=== PATIENT | male | born 1935 | race Caucasian/White ===

== ENCOUNTER → 2024-03-10 | Outpatient (CLI) | payer MEDICARE, BC, SELFPAY ==
[2024-03-10 15:39] LABS: Collection Type, Urine Clean Catch
[2024-03-10 16:44] LABS: Bacteria,Urine 2+; Bilirubin,Urine Negative (Negative); Blood,Urine 1+ (Negative); Color,Urine Yellow (Lt Yel-Yel); Glucose, Urine Negative (Negative); Hyaline Casts,Urine < 1 /hpf (0-1); Ketones,Urine Negative (Negative); Leukocyte Esterase,Urine Positive (Negative); Nitrite,Urine Negative (Negative); Protein,Urine Trace (Neg - Trace); RBC,Urine 33 /hpf (0-3); Specific Gravity,Urine 1.017 (1.001-1.035); Squamous Epithelial Cell,Urine 1 /hpf (0-5); Urobilinogen,Urine Negative mg/dL (0.0-1.0); WBC,Urine 1171 /hpf (0-5)
[2024-03-10 17:58] LABS: Clarity,Urine Hazy (Clear/Hazy)
== END | disposition home or self-care (01) ==
LOC: SLDO 15:28
PROVIDERS: PCP Registered Nurse; Referring Provider Registered Nurse; Visit Provider Registered Nurse
DX: N39.0 Urinary tract infection, site not specified (principal)
CPT/HCPCS: 81001; 87077; 87086; 87186

== ENCOUNTER → 2024-04-06 | Outpatient (CLI) | payer MEDICARE, BC, SELFPAY | END | disposition home or self-care (01) | LOC: SLDO 15:44 | PROVIDERS: PCP Family Medicine; Referring Provider Family Medicine; Visit Provider Family Medicine | DX: N39.0 Urinary tract infection, site not specified (principal) | CPT/HCPCS: 87086 ==

== ENCOUNTER → 2024-05-05 | Outpatient (CLI) | payer MEDICARE, BC, SELFPAY ==
--- NOTE | 2024-05-05 12:19 | XR_ITS ---
Examination: CT abdomen and pelvis without contrast. Coronal 3-D reconstructions. Sagittal 2-D reconstructions. Date and time of exam:May 05, 2024 1319 hours Comparison July 23, 2023 INDICATIONS: Abdominal pain beginning one month ago CTDI: vol (mGy): 7.19 DLP: (mGycm): 362 Technique: Axial images of the abdomen have been obtained, 3 mm slice thickness Intravenous contrast material has not been administered. Low dose protocols were performed. One or more of the following dose reduction techniques were used; automated exposure control, adjustment of the mA and/or KV according to patient size, use of iterative reconstruction technique. Findings: Stable nodule left lower lobe Liver is mildly irregular in contour no focal liver lesions No gallstones Spleen not enlarged No pancreatic or adrenal mass Moderate bilateral renal parenchymal scar formation 19 mm right renal cyst No renal or ureteral calculi, no hydronephrosis Normal appendix No bowel obstruction No diverticulitis 10 mm fat-containing umbilical hernia Colonic diverticulosis 25 mm bladder diverticulum Minimal thickening of urinary bladder wall up to 4 mm Severe osteopenia Grade 1 spondylolisthesis L5 on S1 IMPRESSION: Moderate bilateral renal parenchymal scar formation No renal or ureteral calculi, no hydronephrosis Normal appendix No bowel obstruction Cystitis pattern
== END | disposition home or self-care (01) ==
LOC: SCAT 12:07
PROVIDERS: PCP Family Medicine; Referring Provider Registered Nurse; Visit Provider Registered Nurse
DX: N28.89 Other specified disorders of kidney and ureter (principal)
CPT/HCPCS: 74176

== ENCOUNTER 2024-05-13 11:32 | Emergency (ER) | payer MEDICARE, BC, SELFPAY ==
[2024-05-13 12:20] VITALS: BP 118/66; PULSE 73; RESP 19; TEMP 36.9; O2SAT 97; BMI 25.6
--- NOTE | 2024-05-13 12:39 | XR_ITS ---
Examination: AP chest single view Technique one AP upright portable chest single view Exam date and time: May 13, 2024 1300 hrs. Comparison February 06, 2022 Indications: Chest pain beginning 2 days ago. Findings: Mild opacity in the right upper lobe Normal heart size Left lung clear Impression: Recommend AP lordotic chest follow-up to exclude parenchymal disease in the right upper lobe
--- NOTE | 2024-05-13 12:39 | EKG_ITS ---
[facility] Test Date: 2024-05-13 Pat Name: DAVID OLMEDO Department: Room: - Gender: Male Twister In: : 1935 Requested By: Ese Monique ([facility]) Silvia Order Number: [id number] Reading MD: Ese Monique ([facility]) Silvia Measurements Intervals [place] Rate: 73 P: 74 PA: 210 QRS: -71 QRSD: 104 T: 69 QT: 387 QTc: 428 Interpretive Statements SINUS RHYTHM WITH FIRST DEGREE AV BLOCK LOW QRS VOLTAGE IN PRECORDIAL LEADS [QRS DEFLECTION < 1.0 mV IN CHEST LEADS] PATTERN CONSISTENT WITH PULMONARY DISEASE INCOMPLETE RIGHT BUNDLE BRANCH BLOCK [90+ ms QRS DURATION, TERMINAL R IN V1/V2, 40+ ms S IN I/aVL/V4/V5/V6] LEFT ANTERIOR FASCICULAR BLOCK [QRS AXIS <= -45, QR IN I, RS IN II] No previous ECG available for comparison /store/S0/[id number]/ecg/[id number].pdf
--- NOTE | 2024-05-13 12:39 | PD.EDRME ---
Rapid Medical Screening Exam RME Arrival date/time: 05/13/24 11:32 This is a 89-year-old male who presents to the emergency department with complaints of abdominal pain I have greeted and performed a focused initial assessment of this patient. Initial appropriate labs ordered at this time. A comprehensive ED assessment and evaluation of the patient and analysis of all test and completion of medical decision making process will be conducted by additional ED provider. Chief Complaint: Abdominal Pain Time Seen by Provider: 05/13/24 12:16 Vital signs: Vital Signs Temperature 98.5 F 05/13/24 12:20 Pulse Rate 73 05/13/24 12:20 Respiratory Rate 19 05/13/24 12:20 Blood Pressure 118/66 05/13/24 12:20 Pulse Oximetry (%) 97 05/13/24 12:20 Oxygen Delivery Method Room Air 05/13/24 12:20
[2024-05-13 13:38] LABS: Basophils # (Auto) 0.1 Thou/mm3 (0.0-0.2); Basophils % (Auto) 1 % (0-2.5); Eosinophils # (Auto) 0.3 Thou/mm3 (0.0-0.5); Eosinophils % (Auto) 3 % (0-10); Hemoglobin 14.5 g/dL (13.5-16.0); Immature Granulocytes % (Auto) 0 % (0-0); Immature Granulocytes Auto 0.02 Thou/mm3 (0.00-0.00); Lymphocytes % (Auto) 29 % (10-50); Mean Corpuscular HGB Conc 34.5 g/dl (31.0-37.0); Mean Corpuscular Hemoglobin 29.4 pg (25.0-35.0); Mean Corpuscular Volume 85 fL (80-100); Monocytes # (Auto) 0.8 Thou/mm3 (0.0-0.8); Monocytes % (Auto) 8 % (0-12); Neutrophils # (Auto) 6.1 Thou/mm3 (1.8-7.7); Neutrophils % (Auto) 59 % (37-80); Nucleated Red Blood Cell % 0 /100 WBC (0); Platelet Count 295 Thou/mm3 (140-440); Red Blood Count 4.94 Miln/mm3 (4.50-5.90); White Blood Count 10.4 Thou/mm3 (3.8-10.6)
[2024-05-13 14:08] LABS: B-Type Natriuretic Peptide 38 pg/mL (0-100); INR 1.1 (0.9-1.3); Prothrombin Time 11.9 Seconds (9.0-12.2)
[2024-05-13 14:11] LABS: Alanine Aminotransferase 16 U/L (10-49); Albumin, Serum 4.1 gm/dL (3.4-4.8); Albumin/Globulin Ratio 1.6 (1.2-2.2); Alkaline Phosphatase 76 U/L (46-116); Anion Gap 8 (7-16); Aspartate Amino Transferase 20 U/L (0-34); BUN/Creatinine Ratio 9 Ratio (12-20); Bilirubin,Total 0.6 mg/dL (0.3-1.2); Blood Urea Nitrogen 10 mg/dL (9-23); Calcium 9.3 mg/dL (8.3-10.6); Calcium (Corrected) 9.3 mg/dL (8.5-10.1); Carbon Dioxide 26.6 mMol/L (20.0-31.0); Chloride 106 mMol/L (98-107); Creatinine (Component) 1.1 mg/dL (0.6-1.3); Estimated Creatinine Clearance 51.9 mL/min (>60); Globulin 2.5 gm/dL (2.3-3.5); Glucose 96 mg/dL (74-106); Lipase 34 U/L (12-53); Magnesium 1.7 mg/dL (1.6-2.6); Osmolality,Calculated 280 (275-295); Potassium 4.1 mMol/L (3.4-5.1); Sodium 141 mMol/L (136-145); Total Protein 6.6 gm/dL (5.7-8.2); Troponin I < 0.002 ng/mL (0.0-0.045); eGFR > 60 See Note
[2024-05-13 14:17] VITALS: BP 167/83; PULSE 96; RESP 17; TEMP 36.5; O2SAT 100
[2024-05-13 15:09] LABS: Collection Type, Urine Catheter
--- NOTE | 2024-05-13 15:33 | EDNOTE_ITS ---
<Statement entered by Genesis Price MD - 05/13/24 18:35> As co-signing physician, I was present and available for consult prn. I concur with the plan and care as documented by the midlevel provider. ED Abdominal Pain RME/HPI General Chief Complaint: Abdominal Pain Stated complaint: ABDOMINAL PAIN SINCE YESTERDAY Time seen by provider: 05/13/24 12:16 Arrival date/time: 05/13/24 11:32 RME / HPI RME / HPI narrative: 89-year-old male patient was brought in by family for evaluation regarding abdominal pain. According to the patient's been having abdominal pain since yesterday, severity of symptoms moderate. Diffuse in location, no vomiting no fever no other complaints noted medication was prior to arrival. Related Data Home Medications ?Medication ?Instructions ?Recorded ?Confirmed amlodipine 5 mg tablet 5 mg PO QDAY 07/23/23 atorvastatin 20 mg tablet 20 mg PO QDAY 07/23/2310/03 risperidone 1 mg tablet 1 mg PO HS 07/23/23 10/04/23 acetaminophen 300 mg-codeine 15 mg See Rx Instructions .Route 10/04/23 10/04/23 tablet .COMPLEX PRN Pain Previous Rx's ?Medication ?Instructions ?Recorded amlodipine 5 mg tablet 10 mg (2 x 5 mg) PO QDAY #30 tabs 10/06/23 memantine 5 mg tablet 5 mg PO BID #60 tabs 4 Allergies Allergy/AdvReac Type Severity Reaction Status Date / Time No Known Allergies Allergy Verified 05/13/24 11:36 Review of Systems Review of Systems Narrative Review of Systems: Review of system reviewed and within normal limits except mentioned in HPI ED Exam Narrative Physical exam: VITAL SIGNS: Reviewed. GENERAL APPEARANCE: Alert and interactive, follows commands, no acute distress, HEAD AND FACE: Non-traumatic. ENT: PERRL, pink conjunctivitis, eyelid no trauma, Mucous membrane moist. NECK: Supple, nontender, no nuchal rigidity. CHEST: No tenderness, no crepitus, no paradoxical movement, no retractions. LUNGS: Clear, well ventilated, symmetric, no rales, no wheezing, no ronchi, no stridor, good breath sounds bilaterally. HEART: Regular rate, regular rhythm, no murmur, no gallops. ABDOMEN: Soft, positive bowel sounds, nondistended, no guarding, nontender, no rebound, no masses, RECTAL: Deferred. GENITAL: Deferred. NEUROLOGICAL: Gross motor function intact sensory function intact, Appropriate for age. MUSCULOSKELETAL: low back nontender, full range of motion. EXTREMITIES: Nontender, full range of motion. SKIN: Color pink, dry, no rash, no lacerations, no abrasions, no contusions. LYMPHATICS: Deferred. Course Quality Measures none Orders Category Date Time Status CT Screening NOW Care 05/13/24 15:36 Active EKG (ED ONLY) *Do not use* NOW Care 05/13/24 12:[address] abdomen pelvis w con Stat Exams 05/13/24 15:36 Completed EKG (ED Only) Stat Exams 05/13/24 12:39 Draft XR chest 1V portable Stat Exams 05/13/24 12:39 Completed B-Type Natriuretic Peptide Stat Lab 05/13/24 13:11 Completed CBC Stat Lab 05/13/24 13:11 Completed Comprehensive Metabolic Panel Stat Lab 05/13/24 13:11 Completed Lipase Stat Lab 05/13/24 13:11 Completed Magnesium Stat Lab 05/13/24 13:11 Completed Prothrombin Time with INR Stat Lab 05/13/24 13:11 Completed Troponin I Stat Lab 05/13/24 13:11 Completed Urinalysis, C/S if Indicated Stat Lab 05/13/24 15:01 Completed Urine Culture Stat Lab 05/13/24 15:01 Received cefTRIAXone [Rocephin] 1,000 mg Med 05/13/24 17:46 Active SODIUM CHLORIDE 0.9% (Popper) [NS 0.9% (Popper)] 50 ml IV X1 cefTRIAXone [Rocephin] 1,000 mg Med 05/13/24 17:42 Discontinued Lidocaine 1% 20 ml [Xylocaine 1% 20 ML] 2.1 ml IM X1 Vital Signs Vital signs: Vital Signs Temperature 98.5 F 05/13/24 12:20 Pulse Rate 73 05/13/24 12:20 Respiratory Rate 19 05/13/24 12:20 Blood Pressure 118/66 05/13/24 12:20 Pulse Oximetry (%) 97 05/13/24 12:20 Oxygen Delivery Method Room Air 05/13/24 12:20 Abdominal Pain MDM MDM Narrative MDM Narrative:: EKG as interpreted by me shows sinus rhythm, ventricular to 73 bpm, MA interval 210 MS, no ST segment elevation depression noted. Laboratory workup is unremarkable except for UTI. CT scan of the abdomen and pelvis showed Nonobstructing left renal calculi No hydronephrosis or ureteral calculi Significant scarring left kidney moderate scarring right kidney Colonic diverticulosis, no diverticulitis Urinary bladder wall thickening up to 13 mm with inflammatory change, severe cystitis pattern Patient data External records reviewed:: None Clinical information provided by:: patient Social determinants that could affect healthcare access:: none Patient has the following chronic illnesses:: None How is presenting disease/condition affected by chronic disease/condition?: no chronic disease Evaluation data The following diagnostics were reviewed and interpreted by me:: lab results, radiology exam(s) and EKG tracing(s) Lab and/or radiology exams considered but not ordered:: None Interpretation Summary: See results in MDM Medications / Prescriptions Medications or Prescriptions considered but not ordered:: None Medication administrations:: Medication Administration History Ceftriaxone Sodium 1,000 mg/ (Sodium Chloride) 50 mls @ 100 mls/hr IV X1 ONE Stop: 05/13/24 18:15 Last Admin: 05/13/24 17:58 Dose: 100 mls/hr Documented By: AI Discontinued Medications Ceftriaxone Sodium 1,000 mg/ (Lidocaine HCl 2.1 ml) 0 mg IM X1 ONE Stop: 05/13/24 17:43 Last Admin: 05/13/24 17:48 Dose: Not Given Documented By: AI Non-Admin Reason: Cancelled by Provider Comments: discontinued Ceftriaxone IV Consultations Consultation(s) initiated? (list below): No Diagnosis Differential diagnosis abdominal pain: abdominal pain and diverticulitis Most likely diagnosis given after review of the tests above:: Abdominal pain, UTI Admission Indicated Admission indicated?: not indicated Admission Request Was there a request for admission?: No Disposition Plan Disposition Plan: Discharge Discharge Attestation Discharge Attestation: The patient and all family members were given an opportunity to ask questions and understood the discharge instructions. Discharge instructions specifically effects, indications for sooner follow up or return to the emergency department, and the expected course of current diagnosis. Patient condition: Stable Discharge Plan Plan Patient Disposition: HOME (Self Care) Disposition Comment: Stable Prescriptions/Referrals Prescriptions/Med Rec: No Action atorvastatin 20 mg Tablet 20 mg PO QDAY amlodipine 5 mg Tablet 5 mg PO QDAY risperidone 1 mg tablet 1 mg PO HS acetaminophen-codeine 300-15 mg tablet See Rx Instructions .ROUTE .COMPLEX PRN (Reason: Pain) Patient Comments: take 1/2 to 1 tablet by mouth every 4 to 6 hours if needed for pain Rx Instructions: Take 1/2 to 1 tablet by mouth every 4 to 6 hours as needed for pain amlodipine 5 mg Tablet 10 mg PO QDAY Qty: 30 0RF memantine 5 mg Tablet 5 mg PO BID Qty: 60 0RF Referrals: Ilsa Dunne MD [Primary Care Provider] - In 1 week Problem List Clinical Impression: Abdominal pain, UTI (urinary tract infection) Patient/Caregiver Discharge Instructions Discharge Activity: activity as tolerated Education Materials: ED Bladder Infection, Male (Adult) Additional Instructions: Thank you for the opportunity for serving you today. You are stable for discharged . You are advised to: Follow-up with your PCP in 1 to 2 days Return to ED for worsening of symptoms Increase oral fluids Take medication as prescribed by your doctor Print Language: Salvadorean Stand Alone Forms: Mary Award Info., Patient Portal Info Letter
--- NOTE | 2024-05-13 15:36 | XR_ITS ---
Examination: CT abdomen with intravenous contrast CT pelvis with intravenous contrast 2-D coronal reconstructions 2-D sagittal reconstructions Date and time of exam:May 13, 2024 1650 hrs. Indications: Generalized abdominal pain today Comparison: May 05, 2024. CTDI: vol (mGy) 14.78 DLP: (mGycm) 557 Technique: Multiple axial sections of the abdomen and pelvis have been obtained. 64 slice high-resolution scanner used. 3 mm axial sections have been obtained, post intravenous injection 60 cc [id number] 2-D sagittal, coronal reconstructions obtained. Low dose protocols were performed. One or more of the following dose reduction techniques were used; automated exposure control, adjustment of the mA and/or KV according to patient size, use of iterative reconstruction technique. Findings: No focal liver or splenic lesions Absent gallbladder No pancreatic mass No extrahepatic biliary tract dilatation 27 mm lower pole right renal cyst 4 mm 2 mm calcifications in the left renal pelvis Severe scarring left kidney moderate scarring right kidney No hydronephrosis Abdominal aortic calcification no aneurysmal dilatation Normal appendix No bowel obstruction 10 mm fat-containing umbilical hernia Colonic diverticulosis 33 mm posterior right bladder diverticulum Urinary bladder wall thickening up to 13 mm with inflammatory change Transverse prostate dimension 29 mm Fat-containing inguinal hernias Partially collapsed left penile pelvic pump Grade 1 spondylolisthesis L5 on S1 Moderate disc narrowing L4-L5 Impression: Nonobstructing left renal calculi No hydronephrosis or ureteral calculi Significant scarring left kidney moderate scarring right kidney Colonic diverticulosis, no diverticulitis Urinary bladder wall thickening up to 13 mm with inflammatory change, severe cystitis pattern
[2024-05-13 16:37] VITALS: BP 152/88; PULSE 109; RESP 17; TEMP 36.4; O2SAT 98
[2024-05-13 16:56] LABS: Bilirubin,Urine Negative (Negative); Blood,Urine Negative (Negative); Clarity,Urine Turbid (Clear/Hazy); Color,Urine Yellow (Lt Yel-Yel); Culture Indicated,Urine Not Indicated; Glucose, Urine Negative (Negative); Hyaline Casts,Urine 1 /hpf (0-1); Ketones,Urine Negative (Negative); Leukocyte Esterase,Urine Positive (Negative); Nitrite,Urine Negative (Negative); Protein,Urine Trace (Neg - Trace); RBC,Urine 2 /hpf (0-3); Squamous Epithelial Cell,Urine 1 /hpf (0-5); Urobilinogen,Urine Negative mg/dL (0.0-1.0); WBC,Urine 10 /hpf (0-5)
[2024-05-13] MEDS: cefTRIAXone 1,000 MG in SODIUM CHLORIDE 0.9% (Popper) 50 ML 100 MG IV (17:58)
[2024-05-13 18:35] VITALS: TEMP 38.3
[2024-05-13] MEDS: ACETAMINOPHEN 325 MG TABLET 650 MG PO (18:35)
[2024-05-13 18:36] VITALS: BP 148/72; PULSE 114; RESP 18; TEMP 38.3; O2SAT 98
== END 2024-05-13 18:40 | disposition home or self-care (01) ==
PROVIDERS: Nurse Practitioner Family; Nurse Practitioner Primary Care; Emergency Provider Emergency Medicine; PCP Family Medicine
DX: N39.0 Urinary tract infection, site not specified (principal); N28.89 Other specified disorders of kidney and ureter
CPT/HCPCS: 51701; 36415; 71045; 74177; 80053; 81001; 83690; 83735; 83880; 84484; 85025; 85610; 87086; 93005; 96365; 99285; A4649; J0696; J7050; Q9967; A9270

== ENCOUNTER → 2024-06-30 | Outpatient (CLI) | payer MEDICARE, BC, SELFPAY ==
[2024-06-30 15:56] LABS: Collection Type, Urine Clean Catch; Squamous Epithelial Cell,Urine 0 /hpf (0-5)
[2024-06-30 17:18] LABS: Bacteria,Urine 2+; Bilirubin,Urine Negative (Negative); Blood,Urine 1+ (Negative); Color,Urine Yellow (Lt Yel-Yel); Glucose, Urine Negative (Negative); Ketones,Urine Negative (Negative); Leukocyte Esterase,Urine Positive (Negative); Nitrite,Urine Negative (Negative); Protein,Urine Trace (Neg - Trace); RBC,Urine 60 /hpf (0-3); Specific Gravity,Urine 1.014 (1.001-1.035); Urobilinogen,Urine Negative mg/dL (0.0-1.0); WBC,Urine 1942 /hpf (0-5)
[2024-06-30 17:21] LABS: Clarity,Urine Cloudy (Clear/Hazy)
== END | disposition home or self-care (01) ==
LOC: SLDO 15:33
PROVIDERS: PCP Family Medicine; Referring Provider Family Medicine; Visit Provider Family Medicine
DX: N39.0 Urinary tract infection, site not specified (principal)
CPT/HCPCS: 81001; 87086

== ENCOUNTER 2024-07-07 13:39 | Emergency (ER) | payer MEDICARE, BC, SELFPAY ==
[2024-07-07 14:02] VITALS: BP 175/85; PULSE 95; RESP 18; TEMP 36.8; O2SAT 96
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
[2024-07-07 14:44] LABS: Collection Type, Urine Clean Catch
[2024-07-07 14:47] VITALS: PULSE 80; O2SAT 100
[2024-07-07 14:48] LABS: Bilirubin,Urine Negative (Negative); Blood,Urine Negative (Negative); Clarity,Urine Clear (Clear/Hazy); Color,Urine Lt-Yellow (Lt Yel-Yel); Glucose, Urine Negative (Negative); Ketones,Urine Negative (Negative); Leukocyte Esterase,Urine Negative (Negative); Nitrite,Urine Negative (Negative); PH,Urine 7.5 (5.0-7.0); Protein,Urine Negative (Neg - Trace); RBC,Urine 2 /hpf (0-3); Specific Gravity,Urine 1.014 (1.001-1.035); Squamous Epithelial Cell,Urine < 1 /hpf (0-5); Urobilinogen,Urine Negative mg/dL (0.0-1.0); WBC,Urine 2 /hpf (0-5)
[2024-07-07 14:56] LABS: Amphetamine/Methamp Scrn,U Negative (Negative); Barbiturate Screen,Urine Negative (Negative); Benzodiazepines Screen,Urine Negative (Negative); Benzoylecgonine Screen, Ur Negative (Negative); Fentanyl Screen,Urine Positive (Negative); Opiate Screen,Urine Negative (Negative); THC Screen,Urine Negative (Negative)
[2024-07-07 15:22] LABS: Basophils # (Auto) 0.1 Thou/mm3 (0.0-0.2); Basophils % (Auto) 1 % (0-2.5); Eosinophils # (Auto) 0.3 Thou/mm3 (0.0-0.5); Eosinophils % (Auto) 2 % (0-10); Hematocrit 41.5 % (41.0-53.0); Hemoglobin 14.6 g/dL (13.5-16.0); Immature Granulocytes % (Auto) 0 % (0-0); Immature Granulocytes Auto 0.03 Thou/mm3 (0.00-0.00); Lymphocytes # (Auto) 3.8 Thou/mm3 (1.0-4.8); Lymphocytes % (Auto) 36 % (10-50); Mean Corpuscular HGB Conc 35.2 g/dl (31.0-37.0); Mean Corpuscular Hemoglobin 29.5 pg (25.0-35.0); Mean Corpuscular Volume 84 fL (80-100); Monocytes # (Auto) 0.7 Thou/mm3 (0.0-0.8); Monocytes % (Auto) 6 % (0-12); Neutrophils # (Auto) 5.7 Thou/mm3 (1.8-7.7); Neutrophils % (Auto) 55 % (37-80); Nucleated Red Blood Cell % 0 /100 WBC (0); Platelet Count 262 Thou/mm3 (140-440); RDW Standard Deviation 40.1 fL (35.1-43.9); Red Blood Count 4.95 Miln/mm3 (4.50-5.90); White Blood Count 10.5 Thou/mm3 (3.8-10.6)
[2024-07-07 15:51] LABS: Acetaminophen < 2.0 mcg/mL (10.0-20.0); Alanine Aminotransferase 8 U/L (10-49); Albumin, Serum 4.3 gm/dL (3.4-4.8); Albumin/Globulin Ratio 1.7 (1.2-2.2); Alcohol, Blood Medical < 3.0 mg/dL (0-10.0); Alkaline Phosphatase 93 U/L (46-116); Anion Gap 9 (7-16); Aspartate Amino Transferase 13 U/L (0-34); BUN/Creatinine Ratio 13 Ratio (12-20); Bilirubin,Total 0.7 mg/dL (0.3-1.2); Blood Urea Nitrogen 14 mg/dL (9-23); Calcium 9.5 mg/dL (8.3-10.6); Calcium (Corrected) 9.5 mg/dL (8.5-10.1); Carbon Dioxide 25.1 mMol/L (20.0-31.0); Chloride 108 mMol/L (98-107); Creatinine (Component) 1.1 mg/dL (0.6-1.3); Globulin 2.5 gm/dL (2.3-3.5); Glucose 123 mg/dL (74-106); Osmolality,Calculated 284 (275-295); Potassium 3.7 mMol/L (3.4-5.1); Salicylate < 3.0 mg/dL; Sodium 142 mMol/L (136-145); Total Protein 6.8 gm/dL (5.7-8.2); eGFR > 60 See Note
[2024-07-07 16:00] VITALS: BP 174/94; PULSE 59; RESP 23; TEMP 36.7; O2SAT 98
[2024-07-07 16:33] LABS: Amphetamine/Methamp Scrn,U Negative (Negative); Barbiturate Screen,Urine Negative (Negative); Benzodiazepines Screen,Urine Negative (Negative); Benzoylecgonine Screen, Ur Negative (Negative); Fentanyl Screen,Urine Positive (Negative); Opiate Screen,Urine Negative (Negative); THC Screen,Urine Negative (Negative)
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
[2024-07-07 18:07] VITALS: BP 152/86; PULSE 118; RESP 16; TEMP 36.9; O2SAT 97
--- NOTE | 2024-07-07 18:30 | PC.CC ---
ASW sent referral via [facility] to facilities.
--- NOTE | 2024-07-07 19:50 | PC.NURSE ---
ANNETTE SURE CALLED , I ASKED INTERMEDIATE TEACHER TO RESPOND TO PT.
--- NOTE | 2024-07-07 20:19 | PC.NURSE ---
ANNETTE SURE CALLED, PT IS GETTING OFF FROM BED, PT ASSISTED BACK TO [facility].
--- NOTE | 2024-07-07 20:30 | PC.NURSE ---
PT AWAKE, CONFUSED, KEEP TRYING TO GET UP OFF GURNEY, KEEP SAYING HE NEED TO GO HOME, AVASURE IN THE ROOM, ELENA DOWNS AWARE, NEW ORDER GIVEN AND CARRIED OUT.
[2024-07-07] MEDS: LORazepam 2 MG/ML VIAL IM (20:58)
--- NOTE | 2024-07-07 22:00 | PC.NURSE ---
PT STILL TRYING TO GET OUT OF BED.
[2024-07-07] MEDS: DiphenhydrAMINE INJ 50 MG/ML VIAL IM (22:03)
[2024-07-07 22:19] VITALS: BP 121/86; PULSE 103; RESP 18; TEMP 36.8; O2SAT 98
--- NOTE | 2024-07-07 23:08 | PC.NURSE ---
PT RESTING ,CALM AND NOT TRYING TO GET UP FROM GURNEY.
[2024-07-07 23:58] VITALS: BP 142/88; PULSE 94; RESP 18; O2SAT 96
--- NOTE | 2024-07-08 03:35 | XR_ITS ---
Examination: CT brain head without contrast. 2-D sagittal coronal reconstructions Date and time of exam:July 08, 2024 0450 hrs. Indications: Onset altered mental status today CTDI: vol (mGy):63 DLP: (mGycm):1817 Technique: Multiple CT axial sections of the brain have been obtained, 5 mm slice thickness. Contrast has not been administered. 2-D sagittal, coronal reconstructions have been obtained Low dose protocols were performed. One or more of the following dose reduction techniques were used; automated exposure control, adjustment of the mA and/or KV according to patient size, use of iterative reconstruction technique. Findings: No significant ventricular enlargement. Intra-axial or extra-axial hemorrhage density is not seen. No mass effect or midline shift Basal cisterns are not remarkable. Fourth ventricle is midline. Cranial vault intact. Impression: Negative for acute hemorrhage, mass effect or midline shift Advise clinical correlation follow-up accordingly
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
[2024-07-08 03:53] VITALS: PULSE 67; RESP 16; O2SAT 97
--- NOTE | 2024-07-08 05:38 | PRELIM_ITS ---
CT scan of the head without intravenous contrast (axial sections with sagittal and coronal reformats) July 08, 2024 0450 hours Clinical history: AMS Reference is made to the prior report dated October 02, 2023. Findings: The evaluation is slightly limited due to streak artifact. There is no evidence of intracranial hemorrhage, mass effect or midline shift. There are periventricular white matter hypodensities, compatible with chronic small vessel ischemia. The CSF spaces are prominent consistent with volume loss. There is atheromatous calcification of the intracranial arteries. The calvarium is unremarkable. The mastoid air cells and the visualized paranasal sinuses are clear. Impression: No evidence of intracranial hemorrhage, mass effect or midline shift (slightly limited evaluation due to streak artifact). Periventricular chronic small vessel ischemia and volume loss. Report Electronically Signed By: Amilcar Austin 07/08/2024 5:37:27 AM [EST]
[2024-07-08 05:41] VITALS: BP 121/69; PULSE 75; RESP 16; O2SAT 99
--- NOTE | 2024-07-08 07:06 | PD.EDADDENDU ---
Emergency Room Addendum Addendum Narrative: 0600: Care assumed from Dr. Mart, the previous shift emergency physician. Past medical, surgical, social and family history reviewed. Vitals and home medications reviewed. I will assume the care of the patient at this time, pending SNF placement. Please refer to the emergency department record for history and examination from initial visit.?The following addendum documentation note is intended to reflect any pending information, findings, or radiology results not included in the patient?s initial chart. 1124: Notified by our ASW that the patients son will take the patient home and place into a SNF on Wednesday. Patient remains clinically stable throughout the emergency department visit. Patient was discharged in stable condition.
[2024-07-08 07:10] VITALS: BP 130/79; PULSE 71; RESP 18; TEMP 36.8; O2SAT 96
[2024-07-08 08:59] VITALS: BP 124/76; PULSE 66; RESP 19; TEMP 36.9; O2SAT 97
--- NOTE | 2024-07-08 10:44 | PC.CC ---
Xi GLASER made face to face contact with patient and patient's son, Ron who is at bedside to provide him with an update tjhat no SNF placement has accepted the patient. Patient's son reports he will go speak to Danielle at [facility] to follow up in person and see if she is willing to accept patient back as he did well there in the past.
[2024-07-08 11:06] VITALS: BP 125/73; PULSE 82; RESP 18; TEMP 36.9; O2SAT 100
--- NOTE | 2024-07-08 11:23 | PC.CC ---
Patient's son came back to the hospital upon going to [facility] he reports the patient will be accepted to [facility] on Wednesday. Son cam up with a plan with the family that a niece named, Yesica Cooper will be going home with the patient and staying with him and his Kathie to assist until Wednesday when he is placed at [facility]. ASW provided update to Dr. Walter, JAILYN Calderón, Charge Radha, and bedside RN Radha.
== END 2024-07-08 12:13 | disposition home or self-care (01) ==
PROVIDERS: Nurse Practitioner Family; Emergency Provider Emergency Medicine; PCP Family Medicine
DX: F03.90 Unspecified dementia, unspecified severity, without behavioral disturbance, psychotic disturbance, mood disturbance, and anxiety (principal); I10 Essential (primary) hypertension
CPT/HCPCS: 36415; 70450; 80053; 80307; 80320; 80329; 81001; 85025; 90839; 96127; 96372; 99284; J1200; J2060; G0480

== ENCOUNTER → 2024-08-31 | Outpatient (CLI) | payer MEDICARE, BC, SELFPAY ==
[2024-08-31 15:23] LABS: Collection Type, Urine Clean Catch
[2024-08-31 16:40] LABS: Amorphous Crystals,Urine Present (Absent); Bilirubin,Urine Negative (Negative); Blood,Urine Trace (Negative); Budding Yeast,Urine Present; Color,Urine Yellow (Lt Yel-Yel); Glucose, Urine Negative (Negative); Hyaline Casts,Urine 1 /hpf (0-1); Ketones,Urine Negative (Negative); Leukocyte Esterase,Urine Positive (Negative); Nitrite,Urine Negative (Negative); Protein,Urine Trace (Neg - Trace); RBC,Urine 23 /hpf (0-3); Specific Gravity,Urine 1.016 (1.001-1.035); Squamous Epithelial Cell,Urine 1 /hpf (0-5); Urobilinogen,Urine Negative mg/dL (0.0-1.0); WBC,Urine 530 /hpf (0-5)
[2024-08-31 17:14] LABS: Clarity,Urine Hazy (Clear/Hazy); Culture Indicated,Urine Yes
== END | disposition home or self-care (01) ==
PROVIDERS: PCP Family Medicine; Referring Provider Family Medicine; Visit Provider Family Medicine
DX: R82.90 Unspecified abnormal findings in urine (principal); R41.0 Disorientation, unspecified
CPT/HCPCS: 81001; 87086

== ENCOUNTER → 2024-09-18 | Outpatient (CLI) | payer MEDICARE, BC, SELFPAY ==
[2024-09-18 13:25] LABS: Basophils % (Auto) 1 % (0-2.5); Eosinophils # (Auto) 0.1 Thou/mm3 (0.0-0.5); Eosinophils % (Auto) 1 % (0-10); Hematocrit 39.9 % (41.0-53.0); Hemoglobin 13.5 g/dL (13.5-16.0); Immature Granulocytes % (Auto) 0 % (0-0); Immature Granulocytes Auto 0.01 Thou/mm3 (0.00-0.00); Lymphocytes # (Auto) 2.3 Thou/mm3 (1.0-4.8); Lymphocytes % (Auto) 31 % (10-50); Mean Corpuscular HGB Conc 33.8 g/dl (31.0-37.0); Mean Corpuscular Hemoglobin 30.2 pg (25.0-35.0); Mean Corpuscular Volume 89 fL (80-100); Monocytes # (Auto) 0.5 Thou/mm3 (0.0-0.8); Monocytes % (Auto) 7 % (0-12); Neutrophils # (Auto) 4.5 Thou/mm3 (1.8-7.7); Neutrophils % (Auto) 61 % (37-80); Nucleated Red Blood Cell % 0 /100 WBC (0); Platelet Count 338 Thou/mm3 (140-440); RDW Standard Deviation 40.9 fL (35.1-43.9); Red Blood Count 4.47 Miln/mm3 (4.50-5.90); White Blood Count 7.4 Thou/mm3 (3.8-10.6)
[2024-09-18 13:41] LABS: Alanine Aminotransferase 15 U/L (10-49); Albumin, Serum 3.7 gm/dL (3.4-4.8); Albumin/Globulin Ratio 1.5 (1.2-2.2); Alkaline Phosphatase 86 U/L (46-116); Anion Gap 6 (7-16); Aspartate Amino Transferase 16 U/L (0-34); BUN/Creatinine Ratio 17 Ratio (12-20); Bilirubin,Total 0.5 mg/dL (0.3-1.2); Blood Urea Nitrogen 20 mg/dL (9-23); Calcium 9.2 mg/dL (8.3-10.6); Calcium (Corrected) 9.4 mg/dL (8.5-10.1); Carbon Dioxide 25.6 mMol/L (20.0-31.0); Chloride 107 mMol/L (98-107); Creatinine (Component) 1.2 mg/dL (0.6-1.3); Globulin 2.4 gm/dL (2.3-3.5); Glucose 102 mg/dL (74-106); Osmolality,Calculated 280 (275-295); Potassium 4.6 mMol/L (3.4-5.1); Sodium 139 mMol/L (136-145); Total Protein 6.1 gm/dL (5.7-8.2); eGFR 59 See Note
[2024-09-18 13:59] LABS: Syphilis Nonreactive (Nonreactive)
[2024-09-18 14:59] LABS: Hepatitis A Antibody IgM Non Reactive (Non React); Hepatitis B Core Antibody IgM Non Reactive (Non React); Hepatitis B Surface Antigen Non Reactive (Non React); Hepatitis C Antibody Non Reactive (Non React)
[2024-09-19 15:48] LABS: Chlamydia trachomatis PCR Negative (Not Detect); Neisseria Gonorrhoeae DNA PCR Negative (Not Detect); Trichomonas Negative (Negative)
[2024-09-25 06:45] LABS: HIV Ag/Ab, 4th Gen NON-REACTIVE
== END | disposition home or self-care (01) ==
LOC: SLDO 11:10
PROVIDERS: PCP Student in an Organized Health Care Education/Training Program; Referring Provider Student in an Organized Health Care Education/Training Program; Visit Provider Student in an Organized Health Care Education/Training Program
DX: I10 Essential (primary) hypertension (principal); Z11.3 Encounter for screening for infections with a predominantly sexual mode of transmission
CPT/HCPCS: 36415; 80053; 80074; 85025; 86780; 87389; 87491; 87591; 87661

== ENCOUNTER → 2024-10-18 | Outpatient (CLI) | payer MEDICARE, BC, SELFPAY ==
--- NOTE | 2024-10-18 16:30 | XR_ITS ---
Examination: CT abdomen and pelvis without contrast. Coronal 3-D reconstructions. Sagittal 2-D reconstructions. Date and time of exam:October 18, 2024, 1606 hours Comparison May 13, 2024 INDICATIONS: Lower abdominal pain beginning 6 months ago, history kidney stones, diagnosis lymphoma CTDI: vol (mGy): 7.22 DLP: (mGycm): 455. Technique: Axial images of the abdomen have been obtained, 3 mm slice thickness Intravenous contrast material has not been administered. Low dose protocols were performed. One or more of the following dose reduction techniques were used; automated exposure control, adjustment of the mA and/or KV according to patient size, use of iterative reconstruction technique. Findings: 4 mm pulmonary nodule right lower lobe, 3 mm pulmonary nodule right lower lobe No focal liver or splenic lesions Absent gallbladder No pancreatic or adrenal mass. 6 mm calcification left kidney which may be renal arterial Significant bilateral renal parenchymal scar formation Aortic calcification Normal appendix No bowel obstruction Colonic diverticulosis, no diverticulitis Urinary bladder wall thickening up to 3 mm Normal seminal vesicles No prostatomegaly Grade 1 spondylolisthesis L5 on S1 IMPRESSION: Right lung subcentimeter pulmonary nodules, consider CT chest without contrast follow-up, PET/CT scan July 30, 2022 6 mm calcification left kidney which may be arterial Significant renal parenchymal scar formation. Normal appendix No bowel obstruction Mild urinary bladder wall thickening, consider cystitis
== END | disposition home or self-care (01) ==
LOC: CCTX 15:35
PROVIDERS: Referring Provider Student in an Organized Health Care Education/Training Program; Visit Provider Student in an Organized Health Care Education/Training Program
DX: N20.0 Calculus of kidney (principal); N32.89 Other specified disorders of bladder; N28.89 Other specified disorders of kidney and ureter
CPT/HCPCS: 74176

== ENCOUNTER 2024-11-10 14:03 | Emergency (ER) | payer MEDICARE, BC, SELFPAY ==
[2024-11-10 14:03] VITALS: BMI 21.7
[2024-11-10 15:14] VITALS: BP 123/75; PULSE 81; RESP 18; TEMP 36.6; O2SAT 95
--- NOTE | 2024-11-10 15:18 | EKG_ITS ---
[facility] Test Date: 2024-11-10 Pat Name: DAVID OLMEDO Department: Room: - Gender: Male Theatrical Performer: : [id number] Requested By: Paula Charlton Order Number: [id number] Reading MD: Paula Charlton Measurements Intervals [place] Rate: 85 P: 73 [place]: 176 QRS: -73 QRSD: 96 T: 73 QT: 366 QTc: 438 Interpretive Statements SINUS RHYTHM WITH OCCASIONAL SUPRAVENTRICULAR PREMATURE COMPLEXES LEFT AXIS DEVIATION [QRS AXIS < -30] LOW QRS VOLTAGE IN PRECORDIAL LEADS [QRS DEFLECTION < 1.0 mV IN CHEST LEADS] PATTERN CONSISTENT WITH PULMONARY DISEASE INCOMPLETE RIGHT BUNDLE BRANCH BLOCK [90+ ms QRS DURATION, TERMINAL R IN V1/V2, 40+ ms S IN I/aVL/V4/V5/V6] Compared to ECG 05/13/2024 12:47:16 Left-axis deviation now present First degree AV block no longer present Left anterior fascicular block no longer present /store/S0/[id number]/ecg/[id number].pdf
--- NOTE | 2024-11-10 15:18 | PD.EDRME ---
Rapid Medical Screening Exam RME Arrival date/time: 11/10/24 14:03 Chief Complaint: Abdominal Pain Vital signs: Vital Signs Temperature 97.9 F 11/10/24 15:14 Pulse Rate 81 11/10/24 15:14 Respiratory Rate 18 11/10/24 15:14 Blood Pressure 123/75 11/10/24 15:14 Pulse Oximetry (%) 95 11/10/24 15:14 Oxygen Delivery Method Room Air 11/10/24 15:14 Vital signs reviewed by provider: Yes RME Narrative: Patient is an 89-year-old male with medical history notable for dementia, hypertension hyperlipidemia to the emergency department brought in by his with concerns for abdominal discomfort. Patient lives in a longterm, per the longterm he has not had a bowel movement in 5 days, unclear if he if he is passing gas. Patient does have any surgeries to his belly. No drugs alcohol or smoking, no fever no nausea no vomiting no dysuria, no melena or bloody stools. History obtained from as well as the patient. Per patient's , patient is full code
[2024-11-10 16:18] LABS: Collection Type, Urine Catheter
[2024-11-10 16:22] LABS: Basophils # (Auto) 0.1 Thou/mm3 (0.0-0.2); Basophils % (Auto) 1 % (0-2.5); Eosinophils # (Auto) 0.1 Thou/mm3 (0.0-0.5); Eosinophils % (Auto) 1 % (0-10); Hematocrit 46.0 % (41.0-53.0); Hemoglobin 15.5 g/dL (13.5-16.0); Immature Granulocytes Auto 0.03 Thou/mm3 (0.00-0.00); Lymphocytes # (Auto) 2.3 Thou/mm3 (1.0-4.8); Lymphocytes % (Auto) 24 % (10-50); Mean Corpuscular HGB Conc 33.7 g/dl (31.0-37.0); Mean Corpuscular Hemoglobin 29.8 pg (25.0-35.0); Mean Corpuscular Volume 89 fL (80-100); Monocytes # (Auto) 0.6 Thou/mm3 (0.0-0.8); Monocytes % (Auto) 7 % (0-12); Neutrophils # (Auto) 6.5 Thou/mm3 (1.8-7.7); Neutrophils % (Auto) 68 % (37-80); Nucleated Red Blood Cell # 0.00 Thou/mm3 (0.00-0.00); Nucleated Red Blood Cell % 0 /100 WBC (0); Platelet Count 312 Thou/mm3 (140-440); RDW Standard Deviation 42.2 fL (35.1-43.9); Red Blood Count 5.20 Miln/mm3 (4.50-5.90); White Blood Count 9.6 Thou/mm3 (3.8-10.6)
[2024-11-10 16:27] LABS: Bacteria,Urine Rare; Bilirubin,Urine Negative (Negative); Blood,Urine Negative (Negative); Clarity,Urine Clear (Clear/Hazy); Color,Urine Yellow (Lt Yel-Yel); Glucose, Urine Negative (Negative); Hyaline Casts,Urine < 1 /hpf (0-1); Ketones,Urine Negative (Negative); Leukocyte Esterase,Urine Positive (Negative); Nitrite,Urine Negative (Negative); PH,Urine 5.5 (5.0-7.0); Protein,Urine Negative (Neg - Trace); RBC,Urine 4 /hpf (0-3); Specific Gravity,Urine 1.016 (1.001-1.035); Squamous Epithelial Cell,Urine < 1 /hpf (0-5); Urobilinogen,Urine Negative mg/dL (0.0-1.0); WBC,Urine 37 /hpf (0-5)
[2024-11-10 16:41] LABS: Culture Indicated,Urine Yes
[2024-11-10 16:51] LABS: Alanine Aminotransferase 10 U/L (10-49); Albumin, Serum 4.3 gm/dL (3.4-4.8); Albumin/Globulin Ratio 1.8 (1.2-2.2); Alkaline Phosphatase 84 U/L (46-116); Anion Gap 9 (7-16); Aspartate Amino Transferase 18 U/L (0-34); BUN/Creatinine Ratio 10 Ratio (12-20); Bilirubin,Total 0.8 mg/dL (0.3-1.2); Blood Urea Nitrogen 14 mg/dL (9-23); Calcium 10.2 mg/dL (8.3-10.6); Calcium (Corrected) 10.2 mg/dL (8.5-10.1); Carbon Dioxide 26.0 mMol/L (20.0-31.0); Chloride 101 mMol/L (98-107); Creatinine (Component) 1.4 mg/dL (0.6-1.3); Estimated Creatinine Clearance 38.2 mL/min (>60); Globulin 2.4 gm/dL (2.3-3.5); Glucose 136 mg/dL (74-106); Lipase 34 U/L (12-53); Osmolality,Calculated 274 (275-295); Potassium 4.4 mMol/L (3.4-5.1); Sodium 136 mMol/L (136-145); Total Protein 6.7 gm/dL (5.7-8.2); Troponin I < 0.020 ng/mL (0.0-0.045); eGFR 49 See Note
[2024-11-10] MEDS: KETOROLAC INJ 60 MG/2 ML VIAL 15 MG IM (17:13)
--- NOTE | 2024-11-10 19:00 | PC.NURSE ---
CAME TO TRIAGE DESK TO SAY HE HAS DEMENTIA AND IS GETTING ANGRY SO WE ARE LEAVING. SIGNED AMA FORM
== END 2024-11-10 19:00 | disposition left against medical advice (07) ==
PROVIDERS: Emergency Provider Emergency Medicine
DX: R10.9 Unspecified abdominal pain (principal); F03.90 Unspecified dementia, unspecified severity, without behavioral disturbance, psychotic disturbance, mood disturbance, and anxiety; I10 Essential (primary) hypertension; E78.5 Hyperlipidemia, unspecified; Z53.29 Procedure and treatment not carried out because of patient's decision for other reasons
CPT/HCPCS: 36415; 80053; 81001; 83690; 84484; 85025; 87086; 93005; 96372; 99283; J1885

== ENCOUNTER → 2024-11-13 | Outpatient (CLI) | payer MEDICARE, BC, SELFPAY ==
[2024-11-13 16:00] LABS: Collection Type, Urine Clean Catch; Squamous Epithelial Cell,Urine 0 /hpf (0-5)
[2024-11-13 17:23] LABS: Bacteria,Urine 3+; Bilirubin,Urine Negative (Negative); Blood,Urine 2+ (Negative); Color,Urine Yellow (Lt Yel-Yel); Glucose, Urine Negative (Negative); Ketones,Urine Negative (Negative); Leukocyte Esterase,Urine Positive (Negative); Nitrite,Urine Negative (Negative); PH,Urine 6.0 (5.0-7.0); Protein,Urine Trace (Neg - Trace); RBC,Urine 57 /hpf (0-3); Specific Gravity,Urine 1.012 (1.001-1.035); Urobilinogen,Urine Negative mg/dL (0.0-1.0); WBC,Urine 3296 /hpf (0-5)
[2024-11-13 17:26] LABS: Clarity,Urine Turbid (Clear/Hazy)
== END | disposition home or self-care (01) ==
LOC: SLDO 15:43
PROVIDERS: PCP Family Medicine; Referring Provider Family Medicine; Visit Provider Family Medicine
DX: N39.0 Urinary tract infection, site not specified (principal)
CPT/HCPCS: 81001; 87086

== ENCOUNTER → 2024-11-29 | Outpatient (BNVA) | payer MEDICARE, BC, SELFPAY | END | disposition home or self-care (01) | PROVIDERS: PCP Family Medicine; Referring Provider Family Medicine; Visit Provider Student in an Organized Health Care Education/Training Program | DX: Z96.89 Presence of other specified functional implants (principal); I10 Essential (primary) hypertension | CPT/HCPCS: 99212; G0463 ==

== ENCOUNTER → 2025-03-05 | Outpatient (CLI) | payer MEDICARE, BC, SELFPAY ==
--- NOTE | 2025-03-05 12:15 | XR_ITS ---
Examination: Fingers, right hand fourth digit 3 views Technique: AP, oblique, lateral views right hand fourth digit. Exam date and time: March 05, 2025, 1244 hours INDICATIONS: Right hand fourth digit pain FINDINGS: Acute nondisplaced fractures midportion proximal phalanx fourth digit Severe osteopenia No dislocation IMPRESSION: Acute nondisplaced fractures midportion proximal phalanx fourth digit
== END | disposition home or self-care (01) ==
PROVIDERS: PCP Family Medicine; Referring Provider Family Medicine; Visit Provider Family Medicine
DX: S62.644A Nondisplaced fracture of proximal phalanx of right ring finger, initial encounter for closed fracture (principal); X58.XXXA Exposure to other specified factors, initial encounter
CPT/HCPCS: 73140

== ENCOUNTER → 2025-03-21 | Outpatient (CLI) | payer MEDICARE, BC, SELFPAY ==
[2025-03-21 14:40] LABS: Collection Type, Urine Clean Catch; RBC,Urine 0 /hpf (0-3)
[2025-03-21 15:56] LABS: Bilirubin,Urine Negative (Negative); Blood,Urine Trace (Negative); Clarity,Urine Turbid (Clear/Hazy); Color,Urine Yellow (Lt Yel-Yel); Glucose, Urine Negative (Negative); Ketones,Urine Negative (Negative); Leukocyte Esterase,Urine Positive (Negative); Nitrite,Urine Negative (Negative); PH,Urine 6.0 (5.0-7.0); Protein,Urine Negative (Neg - Trace); Specific Gravity,Urine 1.020 (1.001-1.035); Squamous Epithelial Cell,Urine 1 /hpf (0-5); Urobilinogen,Urine Negative mg/dL (0.0-1.0); WBC,Urine < 1 /hpf (0-5)
== END | disposition home or self-care (01) ==
LOC: SLDO 14:36
PROVIDERS: PCP Family Medicine; Referring Provider Family Medicine; Visit Provider Family Medicine
DX: N39.0 Urinary tract infection, site not specified (principal)
CPT/HCPCS: 81001; 87086